=== PATIENT | female | born 1975 | race Hispanic/Latino ===

== ENCOUNTER 2019-09-28 20:27 | Inpatient (IN) | payer BC ==
[2019-09-28] MEDS ORDERED: SODIUM CHLORIDE 0.9% 1000 ML 1,000 ML IV ONE (21:24)
--- NOTE | 2019-09-28 22:45 | Emergency Department Report ---
ED General Adult HPI - General Chief complaint: Medical Clearance Stated complaint: JAUNDICE/SOB X 4 DAYS Time Seen by Provider: 09/28/19 20:36 Source: patient, EMS Mode of arrival: Stretcher Limitations: Physical Limitation - History of Present Illness Initial comments: She presents to the emergency department from [facility] for jaundice. Patient states she is not sure when the jaundice started but noticed that a scale was yellow in nature for the last couple of days. Patient also complains of bleeding while brushing her teeth. Patient denies chest pain, shortness breath, or headache. -: Gradual Severity scale (0 -10): 0 Consistency: constant Improves with: none Worsens with: none Associated Symptoms: denies other symptoms Treatments Prior to Arrival: none - Related Data Home Medications Medication Instructions Recorded Confirmed Last Taken No Known Home Medications [No 09/28/19 09/28/19 Unknown Reported Home Medications] Allergies Allergy/AdvReac Type Severity Reaction Status Date / Time No Known Allergies Allergy Verified 09/28/19 20:33 ED Review of Systems ROS: Stated complaint: JAUNDICE/SOB X 4 DAYS Other details as noted in HPI Comment: All other systems reviewed and negative Constitutional: denies: chills, fever Eyes: denies: eye pain, eye discharge, vision change ENT: denies: ear pain, throat pain Respiratory: denies: cough, shortness of breath, wheezing Cardiovascular: denies: chest pain, palpitations Endocrine: no symptoms reported Gastrointestinal: abdominal pain. denies: nausea, diarrhea Genitourinary: denies: urgency, dysuria, discharge Musculoskeletal: denies: back pain, joint swelling, arthralgia Skin: denies: rash, lesions Neurological: denies: headache, weakness, paresthesias Psychiatric: denies: anxiety, depression Hematological/Lymphatic: denies: easy bleeding, easy bruising ED Past Medical Hx - Past Medical History Previous Medical History?: Yes Hx Hypertension: Yes Hx Liver Disease: Yes Additional medical history: carpal tunnel - Surgical History Past Surgical History?: No - Social History Smoking Status: Former Smoker Substance Use Type: Alcohol - Medications Home Medications: Home Medications Medication Instructions Recorded Confirmed Last Taken Type No Known Home Medications [No 09/28/19 09/28/19 Unknown History Reported Home Medications] ED Physical Exam - General Limitations: Physical Limitation General appearance: alert, in no apparent distress - Head Head exam: Present: atraumatic, normocephalic - Eye Eye exam: Present: normal appearance, scleral icterus - ENT ENT exam: Present: mucous membranes dry - Neck Neck exam: Present: normal inspection - Respiratory Respiratory exam: Present: normal lung sounds bilaterally. Absent: respiratory distress - Cardiovascular Cardiovascular Exam: Present: normal rhythm, tachycardia. Absent: systolic murmur, diastolic murmur, rubs, gallop - GI/Abdominal GI/Abdominal exam: Present: soft, tenderness (diffuse ttp), normal bowel sounds. Absent: distended - Extremities Exam Extremities exam: Present: normal inspection - Back Exam Back exam: Present: normal inspection - Neurological Exam Neurological exam: Present: alert, oriented X3, CN II-XII intact. Absent: motor sensory deficit - Psychiatric Psychiatric exam: Present: normal affect, normal mood - Skin Skin exam: Present: warm, dry, intact, petechiae, other (jaundice). Absent: rash ED Course Vital Signs 09/28/19 09/28/19 09/28/19 20:30 20:33 20:43 Temperature 98.4 F 98.4 F Pulse Rate 127 H 129 H 129 H Respiratory 27 H 24 24 Rate Blood Pressure 145/82 145/82 Blood Pressure 145/82 [Right] O2 Sat by Pulse 95 97 97 Oximetry 09/28/19 09/28/19 09/28/19 21:00 21:30 22:00 Temperature Pulse Rate 119 H 119 H 119 H Respiratory 25 H 21 25 H Rate Blood Pressure 124/76 123/81 124/71 Blood Pressure [Right] O2 Sat by Pulse 96 97 96 Oximetry 09/28/19 09/28/19 22:30 23:01 Temperature Pulse Rate 116 H 113 H Respiratory 14 24 Rate Blood Pressure 130/82 174/115 Blood Pressure [Right] O2 Sat by Pulse 97 97 Oximetry ED Medical Decision Making - Lab Data Result diagrams: 09/28/19 22:28 09/28/19 22:28 Lab Results 09/28/19 09/28/19 09/28/19 Range/Units 22:28 22:28 22:28 WBC 13.1 H (4.5-11.0) K/mm3 RBC 2.57 L (3.65-5.03) M/mm3 Hgb 9.9 L (10.1-14.3) gm/dl Hct 29.2 L (30.3-42.9) % MCV 114 H (79-97) fl MCH 38 H (28-32) pg MCHC 34 (30-34) % RDW 15.9 H (13.2-15.2) % Plt Count 199 (140-440) K/mm3 Lymph % (Auto) Track Moving Machine Operator [place] % (Auto) Track Moving Machine Operator Eos % (Auto) Track Moving Machine Operator Baso % (Auto) Track Moving Machine Operator Lymph # Track Moving Machine Operator [place] # Track Moving Machine Operator Eos # Track Moving Machine Operator Baso # Track Moving Machine Operator Seg Neutrophils % Track Moving Machine Operator Seg Neutrophils # Track Moving Machine Operator PT 25.0 H (12.2-14.9) Sec. INR 2.32 H (0.87-1.13) APTT 39.0 H (24.2-36.6) Sec. Sodium 132 L (137-145) mmol/L Potassium 3.0 L (3.6-5.0) mmol/L Chloride 90.1 L (98-107) mmol/L Carbon Dioxide 23 (22-30) mmol/L Anion Gap 22 mmol/L BUN 11 (7-17) mg/dL Creatinine 0.9 (0.7-1.2) mg/dL Estimated GFR > 60 ml/min BUN/Creatinine Ratio 12 % Glucose 127 H (65-100) mg/dL Calcium 7.9 L (8.4-10.2) mg/dL Total Bilirubin 21.40 H (0.1-1.2) mg/dL AST 297 H (5-40) units/L ALT 71 H (7-56) units/L Alkaline Phosphatase 307 H (35-129) units/L Albumin 3.3 L (3.9-5) g/dL - Radiology Data Radiology results: report reviewed - Medical Decision Making Discussed results with patient Critical care attestation.: If time is entered above; I have spent that time in minutes in the direct care of this critically ill patient, excluding procedure time. ED Disposition Clinical Impression: Jaundice, Elevated INR, Liver failure Disposition: DC-09 OP ADMIT IP TO THIS HOSP Is pt being admited?: Yes Does the pt Need Aspirin: No Condition: Fair Referrals: PRIMARY CARE, [Primary Care Provider] - 3-5 Days Time of Disposition: 23:30
--- NOTE | 2019-09-28 22:46 | Cat Scan Report ---
CT ABDOMEN AND PELVIS WITHOUT CONTRAST INDICATION: Unspecified abdominal pain. COMPARISON: No relevant prior imaging study available. TECHNIQUE: Axial, coronal and sagittal CT imaging of the abdomen and pelvis was performed without co ntrast. Lack of intravenous contrast limits evaluation of the vascular and solid organs. All CT sca ns at this location are performed using CT dose reduction for ALARA by means of automated exposure co ntrol. FINDINGS: LOWER CHEST: No significant abnormality. LIVER: Enlarged with generalized steatosis. A cyst located laterally along the right hepatic lobe stephanie sures 1.4 cm. BILIARY: No significant abnormality. PANCREAS: No significant abnormality. SPLEEN: No significant abnormality. ADRENALS: No significant abnormality. KIDNEYS AND URETERS: No significant abnormality. GI TRACT: No significant abnormality of the stomach, small bowel or colon. The appendix is not seen. PERITONEUM: There is a moderate amount of ascites. No free air. No fluid collection. LYMPH NODES: No significant adenopathy. VASCULATURE: No significant abnormality. URINARY BLADDER: No significant abnormality. REPRODUCTIVE ORGANS: An IUD appears unremarkable. No additional significant abnormality. ADDITIONAL FINDINGS: None. SKELETAL SYSTEM: There are degenerative changes throughout the spine without an acute abnormality. IMPRESSION: 1. Moderate amount of ascites. No additional acute abnormality of the abdomen or pelvis. 2. Additional findings as above. Signer Name: Angelo Bales MD Signed: 09/28/2019 10:42 PM Workstation Name: [id number]
[2019-09-28 22:55] LABS: INR 2.32 (0.87-1.13)
[2019-09-28 23:00] LABS: Hematocrit 29.2 % (30.3-42.9); Hemoglobin 9.9 gm/dl (10.1-14.3); Mean Corpuscular HGB Conc 34 % (30-34); Mean Corpuscular Volume 114 fl (79-97); Platelet Count 199 K/mm3 (140-440); Red Blood Count 2.57 M/mm3 (3.65-5.03); Red Cell Distribution Width 15.9 % (13.2-15.2)
[2019-09-28 23:08] LABS: Alanine Aminotransferase 71 units/L (7-56); Albumin 3.3 g/dL (3.9-5); BUN/Creatinine Ratio 12; Blood Urea Nitrogen 11 mg/dL (7-17); Calcium 7.9 mg/dL (8.4-10.2); Hemolysis Index 0
[2019-09-28 23:31] LABS: Bilirubin,Direct 16.2 mg/dL (0-0.2)
[2019-09-28] MEDS ORDERED: ONDANSETRON 4 MG/2 ML INJ IV PRN (23:56)
[2019-09-28] MEDS ORDERED: ACETAMINOPHEN 325 MG TAB PO PRN (23:56)
--- NOTE | 2019-09-28 23:56 | History and Physical Report ---
History of Present Illness Date of examination: 09/28/19 Date of admission: 09/28/19 Chief complaint: Jaundice History of present illness: Pt is a 44 year old female with no known prior medical history except for alcohol use disorder who was sent to [facility] ER for evaluation of her jaundice. Pt was seen in the ER, she states that she doesn't know how long that she had been jaundice, pt states that she had been drinking a lot of alcohol (unknown brand and amount), she has been unable to walk due to weakness and unsteady gain. Pt went to [facility] for alcohol used, he was sent to the ER due to jaundice. Patient states she is not sure when the jaundice started, she lives alone and works from home and had not had any recent contact for the past few days, she noticed that her skin and eyes were yellow, she decided to go to detox for the first time to stop drinking. Pt also reports easily bleeding, bleeding while brushing her teeth, significant tremor. Patient denies any acute illness, denies recent traveling, denies chest pain, denies shortness breath, or headache, denies dizziness. In the ER pt's total bilirubin was 22.50, PT/INR 25.0/2.32 his liver function was elevated, electrolytes was depleted and urine was positive for UTI, she was seen in the ER and admitted for further evaluation and treatment. Past History Past Medical History: No medical history, other (except alcohol abuse) Past Surgical History: No surgical history Social history: no significant social history Family history: no significant family history Medications and Allergies Allergies Allergy/AdvReac Type Severity Reaction Status Date / Time No Known Allergies Allergy Verified 09/28/19 20:33 Home Medications Medication Instructions Recorded Confirmed Last Taken Type No Known Home Medications [No 09/28/19 09/28/19 Unknown History Reported Home Medications] Review of Systems Neurological: tremors, ataxia Exam - Constitutional Vitals: Temp Pulse Resp BP Pulse Ox 98.4 F 113 H 24 174/115 97 09/28/19 20:43 09/28/19 23:01 09/28/19 23:01 09/28/19 23:01 09/28/19 23:01 General appearance: Present: mild distress - EENT Eyes: Present: EOM intact, scleral icterus ENT: hearing intact - Neck Neck: Present: normal ROM - Respiratory Respiratory effort: normal Respiratory: bilateral: CTA - Cardiovascular Heart Sounds: Present: S1 & S2 - Extremities Extremities: no ischemia, No edema - Abdominal General gastrointestinal: Present: deferred Female genitourinary: Present: deferred - Rectal Rectal Exam: deferred - Integumentary Integumentary: Present: jaundice - Musculoskeletal Musculoskeletal: strength equal bilaterally - Psychiatric Psychiatric: appropriate mood/affect - Neurologic Neurologic: moves all extremities Results - Labs CBC & Chem 7: 09/28/19 22:28 09/28/19 22:28 Labs: Laboratory Last Values WBC 13.1 K/mm3 (4.5-11.0) H 09/28/19 22:28 RBC 2.57 M/mm3 (3.65-5.03) L 09/28/19 22:28 Hgb 9.9 gm/dl (10.1-14.3) L 09/28/19 22:28 Hct 29.2 % (30.3-42.9) L 09/28/19 22:28 MCV 114 fl (79-97) H 09/28/19 22:28 MCH 38 pg (28-32) H 09/28/19 22:28 MCHC 34 % (30-34) 09/28/19 22:28 RDW 15.9 % (13.2-15.2) H 09/28/19 22:28 Plt Count 199 K/mm3 (140-440) 09/28/19 22:28 Lymph % (Auto) Passenger Train Braker 09/28/19 22:28 [place] % (Auto) Passenger Train Braker 09/28/19 22:28 Eos % (Auto) Passenger Train Braker 09/28/19 22:28 Baso % (Auto) Passenger Train Braker 09/28/19 22:28 Lymph # Passenger Train Braker 09/28/19 22:28 [place] # Passenger Train Braker 09/28/19 22:28 Eos # Passenger Train Braker 09/28/19 22:28 Baso # Passenger Train Braker 09/28/19 22:28 Seg Neutrophils % Passenger Train Braker 09/28/19 22:28 Seg Neutrophils # Passenger Train Braker 09/28/19 22:28 PT 25.0 Sec. (12.2-14.9) H 09/28/19 22:28 INR 2.32 (0.87-1.13) H 09/28/19 22:28 APTT 39.0 Sec. (24.2-36.6) H 09/28/19 22:28 Sodium 132 mmol/L (137-145) L 09/28/19 22:28 Potassium 3.0 mmol/L (3.6-5.0) L 09/28/19 22:28 Chloride 90.1 mmol/L (98-107) L 09/28/19 22:28 Carbon Dioxide 23 mmol/L (22-30) 09/28/19 22:28 Anion Gap 22 mmol/L 09/28/19 22:28 BUN 11 mg/dL (7-17) 09/28/19 22:28 Creatinine 0.9 mg/dL (0.7-1.2) 09/28/19 22:28 Estimated GFR > 60 ml/min 09/28/19 22:28 BUN/Creatinine Ratio 12 % 09/28/19 22:28 Glucose 127 mg/dL (65-100) H 09/28/19 22:28 Calcium 7.9 mg/dL (8.4-10.2) L 09/28/19 22:28 Total Bilirubin 21.40 mg/dL (0.1-1.2) H 09/28/19 22:28 Direct Bilirubin 16.2 mg/dL (0-0.2) H 09/28/19 22:28 Indirect Bilirubin 5.2 mg/dL 09/28/19 22:28 AST 297 units/L (5-40) H 09/28/19 22:28 ALT 71 units/L (7-56) H 09/28/19 22:28 Alkaline Phosphatase 307 units/L (35-129) H 09/28/19 22:28 Total Protein 6.0 g/dL (6.3-8.2) L 09/28/19 22:28 Albumin 3.3 g/dL (3.9-5) L 09/28/19 22:28 Albumin/Globulin Ratio 1.2 % 09/28/19 22:28 Assessment and Plan Assessment and plan: 1. Acute liver failure 2. Jaundice (due to above) 3. Hyperbilirubenemia 4. Alcohol used disorder 5. Leucocytosis 6. Anemia 7. Dehydration 8. Hyponatremia 9. Hypokalemia 10. Hypertension 11. Hyperlipidemia 12. UTI Plan: Pt is admitted for acute jaundice Continue IVF hydration Replace potassium IV antibiotic for UTI Consult GI in the am Monitor for admit to medtele NS for hydration Banana bag or Multi vit, thiamina, CIWA protocol with ativan Safety precaution Advance Directives: Yes Contraindication Mechanical VTE Prophylaxis: Contraindicated Plan of care discussed with patient/family: Yes
[2019-09-29] MEDS ORDERED: METOCLOPRAMIDE 10 MG/2 ML INJ IV PRN (00:31)
[2019-09-29] MEDS ORDERED: ALBUTEROL 2.5 MG/3 ML NEBU IH PRN (00:31)
[2019-09-29] MEDS ORDERED: ONDANSETRON 4 MG/2 ML INJ IV PRN (00:31)
[2019-09-29] MEDS ORDERED: SODIUM CHLORIDE 0.9% 1000 ML 1,000 ML ONE (01:16)
[2019-09-29] MEDS: SODIUM CHLORIDE 0.9% 1000 ML 1,000 ML IV SCH ×2 (01:21→15:09)
[2019-09-29 01:24] LABS: Albumin 3.4 g/dL (3.9-5)
[2019-09-29 01:28] LABS: Bacteria,Urine 1+ /HPF (Negative); Bilirubin,Urine MOD (Negative); Blood,Urine SM (Negative); Color,Urine Amber (Yellow); Mucus,Urine 3+ /HPF
[2019-09-29 01:39] LABS: Ictotest,Urine Positive (Negative)
[2019-09-29 02:04] LABS: Bilirubin,Direct 16.6 mg/dL (0-0.2)
[2019-09-29 03:49] LABS: HDL Cholesterol 5 mg/dL (40-59); LDL Cholesterol,Direct TNR mg/dL (50-130)
[2019-09-29 05:37] LABS: Band Neutrophils # (Manual) 0.1 K/mm3; Basophils % (Manual) 0 % (0.0-1.8); Total Cells Counted 100
[2019-09-29 05:38] LABS: Target Cells 1+
[2019-09-29 05:39] LABS: Platelet Estimate Consistent w Auto
[2019-09-29] MEDS ORDERED: LORazepam 2 MG/ML VIAL IV PRN ×3 (07:09)
[2019-09-29] MEDS ORDERED: HALOPERIDOL LACTATE 5 MG/1 ML INJ IV PRN (07:09)
[2019-09-29] MEDS ORDERED: POTASSIUM CHLORIDE ER 20 MEQ TAB PO NR (07:16)
[2019-09-29] MEDS ORDERED: THIAMINE 100 MG, FOLIC ACID 1 MG, MULTIPLE VITAMIN/VIT K 10 ML in SODIUM CHLORIDE 0.9% ... IV ONE (08:00)
[2019-09-29 08:12] LABS: Albumin 3.3 g/dL (3.9-5)
[2019-09-29 08:46] LABS: Bilirubin,Direct 16.4 mg/dL (0-0.2)
[2019-09-29] MEDS: FAMOTIDINE 20 MG/2 ML INJ IV SCH ×2 (10:34→21:15)
--- NOTE | 2019-09-29 11:32 | Gastroenterology Consultation ---
<EDD ANNE - Last Filed: 09/29/19 13:53> History of Present Illness - Reason for Consult Consult date: 09/29/19 ETOH, liver failure Requesting physician: CARROL BRIONES - History of Present Illness Patient is a 44 y/o with no PMH except ETOH abuse who presented from [facility] (but states she lives in [facility]) for evaluation of acute onset of jaundice over the past few days. Upon admission, LFTs were found to be elevated, along with INR to which GI has been consulted for acute liver failure. This morning patient was resting in bed w/o acute distress. Reports heavy daily alcohol use for several years but no known hx of liver disease. No IV drug use or new medications. Admits to generalized weakness and mild diffuse abd discomfort but denies fever, CP, SOB, N/v, signs of bleeding, or LGI symptoms. Past History Past Medical History: other (ETOH abuse, carpal tunnel) Past Surgical History: No surgical history Social history: smoking (former smoker), alcohol abuse Family history: no significant family history Medications and Allergies Allergies Allergy/AdvReac Type Severity Reaction Status Date / Time No Known Allergies Allergy Verified 09/28/19 20:33 Home Medications Medication Instructions Recorded Confirmed Last Taken Type No Known Home Medications [No 09/28/19 09/28/19 Unknown History Reported Home Medications] Active Meds: Active Medications Acetaminophen (Tylenol) 650 mg PO Q4H PRN PRN Reason: Pain MILD(1-3)/Fever >100.5/JUAREZ Albuterol (Proventil) 2.5 mg IH Q4HRT PRN PRN Reason: Shortness Of Breath Famotidine (Pepcid) 20 mg IV BID [facility] Last Admin: 09/29/19 10:34 Dose: 20 mg Documented by: Haloperidol Lactate (Haldol) 5 mg IV Q1HR PRN PRN Reason: Unrespon. to mult. doses BZD's Sodium Chloride (Nacl 0.9% 1000 Ml) 1,000 mls @ 100 mls/hr IV DIRECT [facility] Last Admin: 09/29/19 01:21 Dose: 100 mls/hr Documented by: Thiamine HCl 100 mg/ Folic Acid 1 mg/ Multivitamins/Minerals 10 ml/ Sodium Chloride 1,011.2 mls @ 250 mls/hr IV ONCE ONE Stop: 09/29/19 12:02 Last Admin: 09/29/19 10:34 Dose: 250 mls/hr Documented by: Lorazepam (Ativan) 2 mg IV Q1HR PRN PRN Reason: CIWA-Ar 8-15 Lorazepam (Ativan) 4 mg IV Q1HR PRN PRN Reason: CIWA-Ar 16-25 Lorazepam (Ativan) 4 mg IV Q15MIN PRN PRN Reason: CIWA-Ar >25 Metoclopramide HCl (Reglan) 10 mg IV Q6H PRN PRN Reason: Nausea And Vomiting Ondansetron HCl (Zofran) 4 mg IV Q8H PRN PRN Reason: Nausea And Vomiting Potassium Chloride (K-Dur) 40 meq PO ONCE NR Stop: 09/29/19 12:00 Sodium Chloride (Sodium Chloride Flush Syringe 10 Ml) 10 ml IV BID [facility] Last Admin: 09/29/19 10:35 Dose: 10 ml Documented by: Sodium Chloride (Sodium Chloride Flush Syringe 10 Ml) 10 ml IV PRN PRN PRN Reason: LINE FLUSH Thiamine HCl (Vitamin B-1) 100 mg PO QDAY [facility] medications reviewed/updated as required Review of Systems - Review of Systems All systems: negative Constitutional: weakness Gastrointestinal: abdominal pain, jaundice Exam - Constitutional Vital Signs: Temp Pulse Resp BP Pulse Ox 98.4 F 107 H 18 132/85 96 09/29/19 07:25 09/29/19 07:25 09/29/19 07:25 09/29/19 07:25 09/29/19 07:25 General appearance: no acute distress - EENT Eyes: PERRL, EOM intact, scleral icterus ENT: hearing intact - Respiratory Respiratory effort: normal Respiratory: bilateral: CTA - Cardiovascular Rhythm: other (tachycardia) - Gastrointestinal General gastrointestinal: Present: soft, tender (slight TTP), non-distended, normal bowel sounds - Integumentary Integumentary: Present: jaundice - Neurologic Neurological: alert and oriented x3 - Labs CBC & Chem 7: 09/28/19 22:28 09/28/19 22:28 Lab Results: Laboratory Results - last 24 hr 09/28/19 09/28/19 09/28/19 22:28 22:28 22:28 WBC 13.1 H RBC 2.57 L Hgb 9.9 L Hct 29.2 L MCV 114 H MCH 38 H MCHC 34 RDW 15.9 H Plt Count 199 Lymph % (Auto) Ore Mixer [place] % (Auto) Ore Mixer Eos % (Auto) Ore Mixer Baso % (Auto) Ore Mixer Lymph # Ore Mixer [place] # Ore Mixer Eos # Ore Mixer Baso # Ore Mixer Add Manual Diff Complete Total Counted 100 Seg Neutrophils % Ore Mixer Seg Neuts % (Manual) 79.0 H Band Neutrophils % 1.0 Lymphocytes % (Manual) 13.0 L Reactive Lymphs % (Man) 0 Monocytes % (Manual) 6.0 Eosinophils % (Manual) 1.0 Basophils % (Manual) 0 Metamyelocytes % 0 Myelocytes % 0 Promyelocytes % 0 Blast Cells % 0 Nucleated RBC % Not Reportable Seg Neutrophils # Ore Mixer Seg Neutrophils # Man 10.3 H Band Neutrophils # 0.1 Lymphocytes # (Manual) 1.7 Abs React Lymphs (Man) 0.0 Monocytes # (Manual) 0.8 Eosinophils # (Manual) 0.1 Basophils # (Manual) 0.0 Metamyelocytes # 0.0 Myelocytes # 0.0 Promyelocytes # 0.0 Blast Cells # 0.0 WBC Morphology Not Reportable Hypersegmented Neuts Not Reportable Hyposegmented Neuts Not Reportable Hypogranular Neuts Not Reportable Smudge Cells Not Reportable Toxic Granulation Not Reportable Toxic Vacuolation Not Reportable Dohle Bodies Not Reportable Pelger-Huet Anomaly Not Reportable Rafi Rods Not Reportable Platelet Estimate Consistent w auto Clumped Platelets Not Reportable Plt Clumps, EDTA Not Reportable Large Platelets Not Reportable Giant Platelets Not Reportable Platelet Satelliting Not Reportable Plt Morphology Comment Not Reportable RBC Morphology Not Reportable Dimorphic RBCs Not Reportable Polychromasia Not Reportable Hypochromasia Not Reportable Poikilocytosis Not Reportable Anisocytosis Not Reportable Microcytosis Not Reportable Macrocytosis Not Reportable Spherocytes Not Reportable Pappenheimer Bodies Not Reportable Sickle Cells Not Reportable Target Cells 1+ Tear Drop Cells Not Reportable Ovalocytes Not Reportable Helmet Cells Not Reportable Harris-Prichard Bodies Not Reportable [place] Rings Not Reportable Mily Cells Not Reportable Bite Cells Not Reportable Crenated Cell Not Reportable Elliptocytes Not Reportable Acanthocytes (Spur) Not Reportable Rouleaux Not Reportable Hemoglobin C Crystals Not Reportable Schistocytes Not Reportable Malaria parasites Not Reportable Ming Bodies Not Reportable Hem Pathologist Commnt No PT 25.0 H INR 2.32 H APTT 39.0 H Sodium 132 L Potassium 3.0 L Chloride 90.1 L Carbon Dioxide 23 Anion Gap 22 BUN 11 Creatinine 0.9 Estimated GFR > 60 BUN/Creatinine Ratio 12 Glucose 127 H Calcium 7.9 L Magnesium Total Bilirubin 21.40 H Direct Bilirubin 16.2 H Indirect Bilirubin 5.2 AST 297 H ALT 71 H Alkaline Phosphatase 307 H Ammonia Total Protein 6.0 L Albumin 3.3 L Albumin/Globulin Ratio 1.2 Triglycerides Cholesterol LDL Cholesterol Direct HDL Cholesterol Cholesterol/HDL Ratio Urine Color Urine Turbidity Urine pH Ur Specific [place] Urine Protein Urine Glucose (UA) Urine Ketones Urine Blood Urine Nitrite Urine Bilirubin Urine Ictotest Urine Urobilinogen Ur Leukocyte Esterase Urine WBC (Auto) Urine RBC (Auto) U Epithel Cells (Auto) Urine Bacteria (Auto) Urine Mucus 09/29/19 09/29/19 09/29/19 00:48 00:48 00:52 WBC RBC Hgb Hct MCV MCH MCHC RDW Plt Count Lymph % (Auto) [place] % (Auto) Eos % (Auto) Baso % (Auto) Lymph # [place] # Eos # Baso # Add Manual Diff Total Counted Seg Neutrophils % Seg Neuts % (Manual) Band Neutrophils % Lymphocytes % (Manual) Reactive Lymphs % (Man) Monocytes % (Manual) Eosinophils % (Manual) Basophils % (Manual) Metamyelocytes % Myelocytes % Promyelocytes % Blast Cells % Nucleated RBC % Seg Neutrophils # Seg Neutrophils # Man Band Neutrophils # Lymphocytes # (Manual) Abs React Lymphs (Man) Monocytes # (Manual) Eosinophils # (Manual) Basophils # (Manual) Metamyelocytes # Myelocytes # Promyelocytes # Blast Cells # WBC Morphology Hypersegmented Neuts Hyposegmented Neuts Hypogranular Neuts Smudge Cells Toxic Granulation Toxic Vacuolation Dohle Bodies Pelger-Huet Anomaly Rafi Rods Platelet Estimate Clumped Platelets Plt Clumps, EDTA Large Platelets Giant Platelets Platelet Satelliting Plt Morphology Comment RBC Morphology Dimorphic RBCs Polychromasia Hypochromasia Poikilocytosis Anisocytosis Microcytosis Macrocytosis Spherocytes Pappenheimer Bodies Sickle Cells Target Cells Tear Drop Cells Ovalocytes Helmet Cells Harris-Prichard Bodies [place] Rings Mily Cells Bite Cells Crenated Cell Elliptocytes Acanthocytes (Spur) Rouleaux Hemoglobin C Crystals Schistocytes Malaria parasites Ming Bodies Hem Pathologist Commnt PT INR APTT Sodium Potassium Chloride Carbon Dioxide Anion Gap BUN Creatinine Estimated GFR BUN/Creatinine Ratio Glucose Calcium Magnesium Total Bilirubin 22.50 H Direct Bilirubin 16.6 H Indirect Bilirubin 5.9 AST 301 H ALT 71 H Alkaline Phosphatase 309 H Ammonia Total Protein 6.1 L Albumin 3.4 L Albumin/Globulin Ratio 1.3 Triglycerides 411 H Cholesterol 310 H LDL Cholesterol Direct TNR HDL Cholesterol 5 L Cholesterol/HDL Ratio 62.00 Urine Color Jennifer Urine Turbidity Cloudy Urine pH 5.0 Ur Specific [place] 1.025 Urine Protein 100 mg/dl Urine Glucose (UA) 150 Urine Ketones Neg Urine Blood Sm Urine Nitrite Neg Urine Bilirubin Mod Urine Ictotest Positive Urine Urobilinogen 4.0 Ur Leukocyte Esterase Neg Urine WBC (Auto) 33.0 H Urine RBC (Auto) 8.0 U Epithel Cells (Auto) 12.0 Urine Bacteria (Auto) 1+ Urine Mucus 3+ 09/29/19 09/29/19 07:30 07:30 WBC RBC Hgb Hct MCV MCH MCHC RDW Plt Count Lymph % (Auto) [place] % (Auto) Eos % (Auto) Baso % (Auto) Lymph # [place] # Eos # Baso # Add Manual Diff Total Counted Seg Neutrophils % Seg Neuts % (Manual) Band Neutrophils % Lymphocytes % (Manual) Reactive Lymphs % (Man) Monocytes % (Manual) Eosinophils % (Manual) Basophils % (Manual) Metamyelocytes % Myelocytes % Promyelocytes % Blast Cells % Nucleated RBC % Seg Neutrophils # Seg Neutrophils # Man Band Neutrophils # Lymphocytes # (Manual) Abs React Lymphs (Man) Monocytes # (Manual) Eosinophils # (Manual) Basophils # (Manual) Metamyelocytes # Myelocytes # Promyelocytes # Blast Cells # WBC Morphology Hypersegmented Neuts Hyposegmented Neuts Hypogranular Neuts Smudge Cells Toxic Granulation Toxic Vacuolation Dohle Bodies Pelger-Huet Anomaly Rafi Rods Platelet Estimate Clumped Platelets Plt Clumps, EDTA Large Platelets Giant Platelets Platelet Satelliting Plt Morphology Comment RBC Morphology Dimorphic RBCs Polychromasia Hypochromasia Poikilocytosis Anisocytosis Microcytosis Macrocytosis Spherocytes Pappenheimer Bodies Sickle Cells Target Cells Tear Drop Cells Ovalocytes Helmet Cells Harris-Prichard Bodies [place] Rings Mily Cells Bite Cells Crenated Cell Elliptocytes Acanthocytes (Spur) Rouleaux Hemoglobin C Crystals Schistocytes Malaria parasites Ming Bodies Hem Pathologist Commnt PT INR APTT Sodium Potassium Chloride Carbon Dioxide Anion Gap BUN Creatinine Estimated GFR BUN/Creatinine Ratio Glucose Calcium Magnesium 1.70 Total Bilirubin 22.10 H Direct Bilirubin 16.4 H Indirect Bilirubin 5.7 AST 305 H ALT 69 H Alkaline Phosphatase 299 H Ammonia 114.0 H Total Protein 6.0 L Albumin 3.3 L Albumin/Globulin Ratio 1.2 Triglycerides Cholesterol LDL Cholesterol Direct HDL Cholesterol Cholesterol/HDL Ratio Urine Color Urine Turbidity Urine pH Ur Specific [place] Urine Protein Urine Glucose (UA) Urine Ketones Urine Blood Urine Nitrite Urine Bilirubin Urine Ictotest Urine Urobilinogen Ur Leukocyte Esterase Urine WBC (Auto) Urine RBC (Auto) U Epithel Cells (Auto) Urine Bacteria (Auto) Urine Mucus Assessment and Plan 1.elevated LFTs 2.jaundice 3.ETOH abuse -afebrile -WBC 13.1 -H/H 9.9/29.2 (macrocytic anemia)-no signs of active bleeding -plt WNL, INR 2.32 -LFTs- T.cheryl 22.10, AST 305, ALT 69, alk phos 299 -ammonia 114 -abd CT showed hepatic steatosis and moderate ascites -etiology-most likely 2/2 alcoholic hepatitis -will give vit K challenge, start on empiric antibiotics/lactulose -DF >32- recommend diagnostic paracentesis to r/o SBP prior to starting on steroids -avoid hepatotoxic agents, limit sedatives -continue PPI, MVI, and supportive care -continue to trend labs -electrolyte management per primary team -alcohol cessation discussed/encouraged with patient- WA protocol -will follow <LUPE PERRY R - Last Filed: 09/29/19 16:43> Medications and Allergies Active Meds: Active Medications Acetaminophen (Tylenol) 650 mg PO Q4H PRN PRN Reason: Pain MILD(1-3)/Fever >100.5/JUAREZ Albuterol (Proventil) 2.5 mg IH Q4HRT PRN PRN Reason: Shortness Of Breath Famotidine (Pepcid) 20 mg IV BID [facility] Last Admin: 09/29/19 10:34 Dose: 20 mg Documented by: Haloperidol Lactate (Haldol) 5 mg IV Q1HR PRN PRN Reason: Unrespon. to mult. doses BZD's Sodium Chloride (Nacl 0.9% 1000 Ml) 1,000 mls @ 100 mls/hr IV DIRECT [facility] Last Admin: 09/29/19 15:09 Dose: 100 mls/hr Documented by: Ceftriaxone Sodium (Rocephin/Ns 1 Gm/50 Ml) 1 gm in 50 mls @ 100 mls/hr IV Q24HR [facility]; Protocol Lactulose (Cephulac) 20 gm PO QDAY [facility] Last Admin: 09/29/19 15:08 Dose: 20 gm Documented by: Lorazepam (Ativan) 2 mg IV Q1HR PRN PRN Reason: CIWA-Ar 8-15 Lorazepam (Ativan) 4 mg IV Q1HR PRN PRN Reason: CIWA-Ar 16-25 Lorazepam (Ativan) 4 mg IV Q15MIN PRN PRN Reason: CIWA-Ar >25 Metoclopramide HCl (Reglan) 10 mg IV Q6H PRN PRN Reason: Nausea And Vomiting Ondansetron HCl (Zofran) 4 mg IV Q8H PRN PRN Reason: Nausea And Vomiting Sodium Chloride (Sodium Chloride Flush Syringe 10 Ml) 10 ml IV BID [facility] Last Admin: 09/29/19 10:35 Dose: 10 ml Documented by: Sodium Chloride (Sodium Chloride Flush Syringe 10 Ml) 10 ml IV PRN PRN PRN Reason: LINE FLUSH Thiamine HCl (Vitamin B-1) 100 mg PO QDAY [facility] Exam - Constitutional Vital Signs: Temp Pulse Resp BP Pulse Ox 98.4 F 107 H 18 132/85 96 09/29/19 07:25 09/29/19 07:25 09/29/19 07:25 09/29/19 07:25 09/29/19 07:25 - Labs CBC & Chem 7: 09/28/19 22:28 09/28/19 22:28 Lab Results: Laboratory Results - last 24 hr 09/28/19 09/28/19 09/28/19 22:28 22:28 22:28 WBC 13.1 H RBC 2.57 L Hgb 9.9 L Hct 29.2 L MCV 114 H MCH 38 H MCHC 34 RDW 15.9 H Plt Count 199 Lymph % (Auto) Ore Mixer [place] % (Auto) Ore Mixer Eos % (Auto) Ore Mixer Baso % (Auto) Ore Mixer Lymph # Ore Mixer [place] # Ore Mixer Eos # Ore Mixer Baso # Ore Mixer Add Manual Diff Complete Total Counted 100 Seg Neutrophils % Ore Mixer Seg Neuts % (Manual) 79.0 H Band Neutrophils % 1.0 Lymphocytes % (Manual) 13.0 L Reactive Lymphs % (Man) 0 Monocytes % (Manual) 6.0 Eosinophils % (Manual) 1.0 Basophils % (Manual) 0 Metamyelocytes % 0 Myelocytes % 0 Promyelocytes % 0 Blast Cells % 0 Nucleated RBC % Not Reportable Seg Neutrophils # Ore Mixer Seg Neutrophils # Man 10.3 H Band Neutrophils # 0.1 Lymphocytes # (Manual) 1.7 Abs React Lymphs (Man) 0.0 Monocytes # (Manual) 0.8 Eosinophils # (Manual) 0.1 Basophils # (Manual) 0.0 Metamyelocytes # 0.0 Myelocytes # 0.0 Promyelocytes # 0.0 Blast Cells # 0.0 WBC Morphology Not Reportable Hypersegmented Neuts Not Reportable Hyposegmented Neuts Not Reportable Hypogranular Neuts Not Reportable Smudge Cells Not Reportable Toxic Granulation Not Reportable Toxic Vacuolation Not Reportable Dohle Bodies Not Reportable Pelger-Huet Anomaly Not Reportable Rafi Rods Not Reportable Platelet Estimate Consistent w auto Clumped Platelets Not Reportable Plt Clumps, EDTA Not Reportable Large Platelets Not Reportable Giant Platelets Not Reportable Platelet Satelliting Not Reportable Plt Morphology Comment Not Reportable RBC Morphology Not Reportable Dimorphic RBCs Not Reportable Polychromasia Not Reportable Hypochromasia Not Reportable Poikilocytosis Not Reportable Anisocytosis Not Reportable Microcytosis Not Reportable Macrocytosis Not Reportable Spherocytes Not Reportable Pappenheimer Bodies Not Reportable Sickle Cells Not Reportable Target Cells 1+ Tear Drop Cells Not Reportable Ovalocytes Not Reportable Helmet Cells Not Reportable Harris-Prichard Bodies Not Reportable [place] Rings Not Reportable [employer] Cells Not Reportable Bite Cells Not Reportable Crenated Cell Not Reportable Elliptocytes Not Reportable Acanthocytes (Spur) Not Reportable Rouleaux Not Reportable Hemoglobin C Crystals Not Reportable Schistocytes Not Reportable Malaria parasites Not Reportable Ming Bodies Not Reportable Hem Pathologist Commnt No PT 25.0 H INR 2.32 H APTT 39.0 H Sodium 132 L Potassium 3.0 L Chloride 90.1 L Carbon Dioxide 23 Anion Gap 22 BUN 11 Creatinine 0.9 Estimated GFR > 60 BUN/Creatinine Ratio 12 Glucose 127 H Calcium 7.9 L Magnesium Total Bilirubin 21.40 H Direct Bilirubin 16.2 H Indirect Bilirubin 5.2 AST 297 H ALT 71 H Alkaline Phosphatase 307 H Ammonia Total Protein 6.0 L Albumin 3.3 L Albumin/Globulin Ratio 1.2 Triglycerides Cholesterol LDL Cholesterol Direct HDL Cholesterol Cholesterol/HDL Ratio Urine Color Urine Turbidity Urine pH Ur Specific [place] Urine Protein Urine Glucose (UA) Urine Ketones Urine Blood Urine Nitrite Urine Bilirubin Urine Ictotest Urine Urobilinogen Ur Leukocyte Esterase Urine WBC (Auto) Urine RBC (Auto) U Epithel Cells (Auto) Urine Bacteria (Auto) Urine Mucus Hepatitis A IgM Ab Hep Bs Antigen Hep B Core IgM Ab Hepatitis C Antibody 09/29/19 09/29/19 09/29/19 00:48 00:48 00:52 WBC RBC Hgb Hct MCV MCH MCHC RDW Plt Count Lymph % (Auto) [place] % (Auto) Eos % (Auto) Baso % (Auto) Lymph # [place] # Eos # Baso # Add Manual Diff Total Counted Seg Neutrophils % Seg Neuts % (Manual) Band Neutrophils % Lymphocytes % (Manual) Reactive Lymphs % (Man) Monocytes % (Manual) Eosinophils % (Manual) Basophils % (Manual) Metamyelocytes % Myelocytes % Promyelocytes % Blast Cells % Nucleated RBC % Seg Neutrophils # Seg Neutrophils # Man Band Neutrophils # Lymphocytes # (Manual) Abs React Lymphs (Man) Monocytes # (Manual) Eosinophils # (Manual) Basophils # (Manual) Metamyelocytes # Myelocytes # Promyelocytes # Blast Cells # WBC Morphology Hypersegmented Neuts Hyposegmented Neuts Hypogranular Neuts Smudge Cells Toxic Granulation Toxic Vacuolation Dohle Bodies Pelger-Huet Anomaly Rafi Rods Platelet Estimate Clumped Platelets Plt Clumps, EDTA Large Platelets Giant Platelets Platelet Satelliting Plt Morphology Comment RBC Morphology Dimorphic RBCs Polychromasia Hypochromasia Poikilocytosis Anisocytosis Microcytosis Macrocytosis Spherocytes Pappenheimer Bodies Sickle Cells Target Cells Tear Drop Cells Ovalocytes Helmet Cells Harris-Prichard Bodies [place] Rings [employer] Cells Bite Cells Crenated Cell Elliptocytes Acanthocytes (Spur) Rouleaux Hemoglobin C Crystals Schistocytes Malaria parasites Ming Bodies Hem Pathologist Commnt PT INR APTT Sodium Potassium Chloride Carbon Dioxide Anion Gap BUN Creatinine Estimated GFR BUN/Creatinine Ratio Glucose Calcium Magnesium Total Bilirubin 22.50 H Direct Bilirubin 16.6 H Indirect Bilirubin 5.9 AST 301 H ALT 71 H Alkaline Phosphatase 309 H Ammonia Total Protein 6.1 L Albumin 3.4 L Albumin/Globulin Ratio 1.3 Triglycerides 411 H Cholesterol 310 H LDL Cholesterol Direct TNR HDL Cholesterol 5 L Cholesterol/HDL Ratio 62.00 Urine Color Jennifer Urine Turbidity Cloudy Urine pH 5.0 Ur Specific [place] 1.025 Urine Protein 100 mg/dl Urine Glucose (UA) 150 Urine Ketones Neg Urine Blood Sm Urine Nitrite Neg Urine Bilirubin Mod Urine Ictotest Positive Urine Urobilinogen 4.0 Ur Leukocyte Esterase Neg Urine WBC (Auto) 33.0 H Urine RBC (Auto) 8.0 U Epithel Cells (Auto) 12.0 Urine Bacteria (Auto) 1+ Urine Mucus 3+ Hepatitis A IgM Ab Hep Bs Antigen Hep B Core IgM Ab Hepatitis C Antibody 09/29/19 09/29/19 09/29/19 07:30 07:30 09:53 WBC RBC Hgb Hct MCV MCH MCHC RDW Plt Count Lymph % (Auto) [place] % (Auto) Eos % (Auto) Baso % (Auto) Lymph # [place] # Eos # Baso # Add Manual Diff Total Counted Seg Neutrophils % Seg Neuts % (Manual) Band Neutrophils % Lymphocytes % (Manual) Reactive Lymphs % (Man) Monocytes % (Manual) Eosinophils % (Manual) Basophils % (Manual) Metamyelocytes % Myelocytes % Promyelocytes % Blast Cells % Nucleated RBC % Seg Neutrophils # Seg Neutrophils # Man Band Neutrophils # Lymphocytes # (Manual) Abs React Lymphs (Man) Monocytes # (Manual) Eosinophils # (Manual) Basophils # (Manual) Metamyelocytes # Myelocytes # Promyelocytes # Blast Cells # WBC Morphology Hypersegmented Neuts Hyposegmented Neuts Hypogranular Neuts Smudge Cells Toxic Granulation Toxic Vacuolation Dohle Bodies Pelger-Huet Anomaly Rafi Rods Platelet Estimate Clumped Platelets Plt Clumps, EDTA Large Platelets Giant Platelets Platelet Satelliting Plt Morphology Comment RBC Morphology Dimorphic RBCs Polychromasia Hypochromasia Poikilocytosis Anisocytosis Microcytosis Macrocytosis Spherocytes Pappenheimer Bodies Sickle Cells Target Cells Tear Drop Cells Ovalocytes Helmet Cells Harris-Prichard Bodies [place] Rings [employer] Cells Bite Cells Crenated Cell Elliptocytes Acanthocytes (Spur) Rouleaux Hemoglobin C Crystals Schistocytes Malaria parasites Ming Bodies Hem Pathologist Commnt PT INR APTT Sodium Potassium Chloride Carbon Dioxide Anion Gap BUN Creatinine Estimated GFR BUN/Creatinine Ratio Glucose Calcium Magnesium 1.70 Total Bilirubin 22.10 H Direct Bilirubin 16.4 H Indirect Bilirubin 5.7 AST 305 H ALT 69 H Alkaline Phosphatase 299 H Ammonia 114.0 H Total Protein 6.0 L Albumin 3.3 L Albumin/Globulin Ratio 1.2 Triglycerides Cholesterol LDL Cholesterol Direct HDL Cholesterol Cholesterol/HDL Ratio Urine Color Urine Turbidity Urine pH Ur Specific [place] Urine Protein Urine Glucose (UA) Urine Ketones Urine Blood Urine Nitrite Urine Bilirubin Urine Ictotest Urine Urobilinogen Ur Leukocyte Esterase Urine WBC (Auto) Urine RBC (Auto) U Epithel Cells (Auto) Urine Bacteria (Auto) Urine Mucus Hepatitis A IgM Ab Non-reactive Hep Bs Antigen Non-reactive Hep B Core IgM Ab Non-reactive Hepatitis C Antibody Non-reactive 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 Denies prior known hx of liver disease. 4 yr hx of 750ml vodka q 2-3 days. Alert, jaundiced. If unable to get coags corrected and get paracentesis, then initiate abx and steroids empirically.
[2019-09-29] MEDS ORDERED: FLU VACC QUAD 2019-20 (3 YR UP)/PF 60 MCG/0.5 ML SYRINGE IM ONE (12:00)
[2019-09-29 13:57] LABS: Hepatitis B Surface Antigen Non-Reactive (Negative); Hepatitis C Virus Antibody Non-Reactive (NonReactive)
[2019-09-29] MEDS ORDERED: PHYTONADIONE(ADULT ONLY) 10 MG in SODIUM CHLORIDE 0.9% 50 ML IV ONE (14:06)
[2019-09-29] MEDS: LACTULOSE 20 GM/30 ML ORAL LIQD PO SCH (15:08)
--- NOTE | 2019-09-29 16:34 | Progress Note ---
Assessment and Plan /Acute alcoholic liver failure - Continue to monitor LFT, follow GI recommendation - Continue lactulose, steroid /Hyperbilirubenemia, due to acute liver failure, supportive care /Alcohol used disorder NS for hydration Banana bag or Multi vit, thiamina, CIWA protocol with ativan /Leucocytosis with SIRS from [place] - We'll monitor clinically, supportive care Anemia of chronic disease, monitor H&H, transfuse as needed / Hyponatremia and Hypokalemia - Continue IV fluid hydration, replete electrolytes, monitor BMP / Hypertension - monitor BP / Hyperlipidemia - we will hold his statin in the light of acute hepatic failure / UTI - ruled out with a negative UA and negative urine culture DVT prophylaxis, SCD Subjective Date of service: 09/29/19 Interval history: Patient seen and examined. Medical records and medication list reviewed. No acute event overnight noted by the RN. Patient denies any chest pain or difficulty breathing. Admits to drinking alcohol daily basis mainly vodka, last intake was on 09/25 Discussed plan of care at bedside with patient. Objective - Constitutional Vitals: Vital Signs - 12hr 09/29/19 07:25 Temperature 98.4 F Pulse Rate 107 H Respiratory 18 Rate Blood Pressure 132/85 O2 Sat by Pulse 96 Oximetry General appearance: Present: mild distress - EENT Eyes: PERRL, EOM intact, scleral icterus ENT: hearing intact, clear oral mucosa Ears: bilateral: normal - Neck Neck: supple, normal ROM - Respiratory Respiratory effort: normal Respiratory: bilateral: CTA - Cardiovascular Rhythm: regular Heart Sounds: Present: S1 & S2. Absent: gallop, rub Extremities: pulses intact, No edema, normal color, Full ROM - Gastrointestinal General gastrointestinal: Present: soft, non-tender, non-distended, normal bowel sounds - Integumentary Integumentary: clear, warm, dry, jaundice - Musculoskeletal Musculoskeletal: generalized weakness - Neurologic Neurologic: moves all extremities - Psychiatric Psychiatric: memory intact, appropriate mood/affect, intact judgment & insight - Labs CBC & Chem 7: 10/01/19 05:09 10/01/19 09:13 Labs: Abnormal lab results 09/28/19 09/28/19 09/28/19 Range/Units 22:28 22:28 22:28 WBC 13.1 H (4.5-11.0) K/mm3 RBC 2.57 L (3.65-5.03) M/mm3 Hgb 9.9 L (10.1-14.3) gm/dl Hct 29.2 L (30.3-42.9) % MCV 114 H (79-97) fl MCH 38 H (28-32) pg RDW 15.9 H (13.2-15.2) % Seg Neuts % (Manual) 79.0 H (40.0-70.0) % Lymphocytes % (Manual) 13.0 L (13.4-35.0) % Seg Neutrophils # Man 10.3 H (1.8-7.7) K/mm3 PT 25.0 H (12.2-14.9) Sec. INR 2.32 H (0.87-1.13) APTT 39.0 H (24.2-36.6) Sec. Sodium 132 L (137-145) mmol/L Potassium 3.0 L (3.6-5.0) mmol/L Chloride 90.1 L (98-107) mmol/L Glucose 127 H (65-100) mg/dL Calcium 7.9 L (8.4-10.2) mg/dL Total Bilirubin 21.40 H (0.1-1.2) mg/dL Direct Bilirubin 16.2 H (0-0.2) mg/dL AST 297 H (5-40) units/L ALT 71 H (7-56) units/L Alkaline Phosphatase 307 H (35-129) units/L Ammonia (25-60) umol/L Total Protein 6.0 L (6.3-8.2) g/dL Albumin 3.3 L (3.9-5) g/dL Triglycerides (2-149) mg/dL Cholesterol (50-199) mg/dL HDL Cholesterol (40-59) mg/dL Urine WBC (Auto) (0.0-6.0) /HPF 09/29/19 09/29/19 09/29/19 Range/Units 00:48 00:48 00:52 WBC (4.5-11.0) K/mm3 RBC (3.65-5.03) M/mm3 Hgb (10.1-14.3) gm/dl Hct (30.3-42.9) % MCV (79-97) fl MCH (28-32) pg RDW (13.2-15.2) % Seg Neuts % (Manual) (40.0-70.0) % Lymphocytes % (Manual) (13.4-35.0) % Seg Neutrophils # Man (1.8-7.7) K/mm3 PT (12.2-14.9) Sec. INR (0.87-1.13) APTT (24.2-36.6) Sec. Sodium (137-145) mmol/L Potassium (3.6-5.0) mmol/L Chloride (98-107) mmol/L Glucose (65-100) mg/dL Calcium (8.4-10.2) mg/dL Total Bilirubin 22.50 H (0.1-1.2) mg/dL Direct Bilirubin 16.6 H (0-0.2) mg/dL AST 301 H (5-40) units/L ALT 71 H (7-56) units/L Alkaline Phosphatase 309 H (35-129) units/L Ammonia (25-60) umol/L Total Protein 6.1 L (6.3-8.2) g/dL Albumin 3.4 L (3.9-5) g/dL Triglycerides 411 H (2-149) mg/dL Cholesterol 310 H (50-199) mg/dL HDL Cholesterol 5 L (40-59) mg/dL Urine WBC (Auto) 33.0 H (0.0-6.0) /HPF 09/29/19 09/29/19 Range/Units 07:30 07:30 WBC (4.5-11.0) K/mm3 RBC (3.65-5.03) M/mm3 Hgb (10.1-14.3) gm/dl Hct (30.3-42.9) % MCV (79-97) fl MCH (28-32) pg RDW (13.2-15.2) % Seg Neuts % (Manual) (40.0-70.0) % Lymphocytes % (Manual) (13.4-35.0) % Seg Neutrophils # Man (1.8-7.7) K/mm3 PT (12.2-14.9) Sec. INR (0.87-1.13) APTT (24.2-36.6) Sec. Sodium (137-145) mmol/L Potassium (3.6-5.0) mmol/L Chloride (98-107) mmol/L Glucose (65-100) mg/dL Calcium (8.4-10.2) mg/dL Total Bilirubin 22.10 H (0.1-1.2) mg/dL Direct Bilirubin 16.4 H (0-0.2) mg/dL AST 305 H (5-40) units/L ALT 69 H (7-56) units/L Alkaline Phosphatase 299 H (35-129) units/L Ammonia 114.0 H (25-60) umol/L Total Protein 6.0 L (6.3-8.2) g/dL Albumin 3.3 L (3.9-5) g/dL Triglycerides (2-149) mg/dL Cholesterol (50-199) mg/dL HDL Cholesterol (40-59) mg/dL Urine WBC (Auto) (0.0-6.0) /HPF - Imaging and cardiology CT scan - abdomen: report reviewed
[2019-09-30] MEDS: SODIUM CHLORIDE 0.9% 1000 ML 1,000 ML IV SCH ×2 (04:42→21:35)
[2019-09-30 05:43] LABS: Hematocrit 26.2 % (30.3-42.9); Mean Corpuscular HGB Conc 34 % (30-34); Platelet Count 190 K/mm3 (140-440); Red Blood Count 2.27 M/mm3 (3.65-5.03); Red Cell Distribution Width 16.4 % (13.2-15.2)
[2019-09-30 05:45] LABS: INR 2.09 (0.87-1.13); Mean Corpuscular Volume 115 fl (79-97)
[2019-09-30 06:03] LABS: Alanine Aminotransferase 62 units/L (7-56); Albumin 3.1 g/dL (3.9-5); BUN/Creatinine Ratio 60; Blood Urea Nitrogen 12 mg/dL (7-17); Calcium 7.5 mg/dL (8.4-10.2); Hemolysis Index 0
[2019-09-30 06:18] LABS: Anisocytosis 1+; Basophils % (Manual) 0 % (0.0-1.8); Total Cells Counted 100
[2019-09-30 06:19] LABS: Macrocytosis 1+; Platelet Estimate Consistent w Auto
[2019-09-30] MEDS ORDERED: POTASSIUM CHLORIDE ER 20 MEQ TAB PO ONE (06:22)
[2019-09-30] MEDS: cefTRIAXone/NS 1 GM/50 ML 1 GM/50 ML BAG IV SCH ×2 (10:00→21:06)
[2019-09-30] MEDS: predniSONE 20 MG TAB PO SCH (11:53)
[2019-09-30] MEDS: FAMOTIDINE 20 MG/2 ML INJ IV SCH ×2 (11:53→21:35)
[2019-09-30] MEDS: LACTULOSE 20 GM/30 ML ORAL LIQD PO SCH (11:53)
[2019-09-30] MEDS: THIAMINE 100 MG TAB PO SCH (11:53)
[2019-09-30] MEDS: POTASSIUM CHLORIDE 10 MEQ 10 MEQ/100 ML BAG IV SCH ×4 (11:54→21:07)
--- NOTE | 2019-09-30 12:00 | Gastroenterology Progress Note ---
<EDD ANNE - Last Filed: 09/30/19 12:05> Assessment and Plan 1.elevated LFTs 2.jaundice 3.ETOH abuse -WBC 11.7-trending down -H/H 9.0/26.2 (macrocytic anemia)-no signs of active bleeding -plt WNL, INR 2.09-trending down s/p vit K -LFTs- T.cheryl 22.90, AST 236, ALT 62, alk phos 255 -ammonia 95-trending down -abd CT showed hepatic steatosis and moderate ascites -etiology-most likely 2/2 alcoholic hepatitis -DF >32- diagnostic/therapeutic paracentesis pending to r/o SBP once INR <2, then will initiate steroids -continue empiric antibiotics/lactulose -avoid hepatotoxic agents/limit sedatives -continue PPI, MVI, and supportive care -continue to trend labs -electrolyte management per primary team -alcohol cessation discussed/encouraged with patient- [facility] protocol -will follow Subjective Date of service: 09/30/19 Principal diagnosis: liver failure, ETOH, abd distention Interval history: Patient resting in bed this am w/o acute distress but noted to be somnolent. Has some continued mild abd discomfort. No N/V or signs of bleeding. Objective - Constitutional Vitals: Temp Pulse Resp BP Pulse Ox 99.9 F H 114 H 24 143/94 94 09/30/19 03:25 09/30/19 04:00 09/30/19 03:25 09/30/19 03:25 09/30/19 03:25 General appearance: no acute distress, other (somnolent) - EENT Eyes: scleral icterus - Respiratory Respiratory effort: normal Respiratory: bilateral: CTA (anterior) - Cardiovascular Rhythm: other (tachycardia) - Gastrointestinal General gastrointestinal: Present: soft, tender (slight TTP), distended (slightly), normal bowel sounds - Integumentary Integumentary: Present: jaundice - Neurologic Neurological: alert and oriented x3 - Labs CBC & Chem 7: 09/30/19 04:59 09/30/19 04:59 Labs: Laboratory Results - last 24 hr 09/29/19 09/30/19 09/30/19 09:53 04:59 04:59 WBC 11.7 H RBC 2.27 L Hgb 9.0 L Hct 26.2 L MCV 115 H MCH 39 H MCHC 34 RDW 16.4 H Plt Count 190 Add Manual Diff Complete Total Counted 100 Seg Neuts % (Manual) 87.0 H Band Neutrophils % 0 Lymphocytes % (Manual) 7.0 L Reactive Lymphs % (Man) 0 Monocytes % (Manual) 5.0 Eosinophils % (Manual) 1.0 Basophils % (Manual) 0 Metamyelocytes % 0 Myelocytes % 0 Promyelocytes % 0 Blast Cells % 0 Nucleated RBC % Not Reportable Seg Neutrophils # Man 10.2 H Band Neutrophils # 0.0 Lymphocytes # (Manual) 0.8 L Abs React Lymphs (Man) 0.0 Monocytes # (Manual) 0.6 Eosinophils # (Manual) 0.1 Basophils # (Manual) 0.0 Metamyelocytes # 0.0 Myelocytes # 0.0 Promyelocytes # 0.0 Blast Cells # 0.0 WBC Morphology Not Reportable Hypersegmented Neuts Not Reportable Hyposegmented Neuts Not Reportable Hypogranular Neuts Not Reportable Smudge Cells Not Reportable Toxic Granulation Not Reportable Toxic Vacuolation Not Reportable Dohle Bodies Not Reportable Pelger-Huet Anomaly Not Reportable Rafi Rods Not Reportable Platelet Estimate Consistent w auto Clumped Platelets Not Reportable Plt Clumps, EDTA Not Reportable Large Platelets Not Reportable Giant Platelets Not Reportable Platelet Satelliting Not Reportable Plt Morphology Comment Not Reportable RBC Morphology Not Reportable Dimorphic RBCs Not Reportable Polychromasia Not Reportable Hypochromasia Not Reportable Poikilocytosis Not Reportable Anisocytosis 1+ Microcytosis Not Reportable Macrocytosis 1+ Spherocytes Not Reportable Pappenheimer Bodies Not Reportable Sickle Cells Not Reportable Target Cells Not Reportable Tear Drop Cells Not Reportable Ovalocytes Not Reportable Helmet Cells Not Reportable [place] Bodies Not Reportable [place] Rings Not Reportable [place] Cells Not Reportable Bite Cells Not Reportable Crenated Cell Not Reportable Elliptocytes Not Reportable Acanthocytes (Spur) Not Reportable Rouleaux Not Reportable Hemoglobin C Crystals Not Reportable Schistocytes Not Reportable Malaria parasites Not Reportable Ming Bodies Not Reportable Hem Pathologist Commnt No PT 23.1 H INR 2.09 H Sodium Potassium Chloride Carbon Dioxide Anion Gap BUN Creatinine Estimated GFR BUN/Creatinine Ratio Glucose Calcium Total Bilirubin AST ALT Alkaline Phosphatase Ammonia Total Protein Albumin Albumin/Globulin Ratio Hepatitis A IgM Ab Non-reactive Hep Bs Antigen Non-reactive Hep B Core IgM Ab Non-reactive Hepatitis C Antibody Non-reactive 09/30/19 09/30/19 04:59 04:59 WBC RBC Hgb Hct MCV MCH MCHC RDW Plt Count Add Manual Diff Total Counted Seg Neuts % (Manual) Band Neutrophils % Lymphocytes % (Manual) Reactive Lymphs % (Man) Monocytes % (Manual) Eosinophils % (Manual) Basophils % (Manual) Metamyelocytes % Myelocytes % Promyelocytes % Blast Cells % Nucleated RBC % Seg Neutrophils # Man Band Neutrophils # Lymphocytes # (Manual) Abs React Lymphs (Man) Monocytes # (Manual) Eosinophils # (Manual) Basophils # (Manual) Metamyelocytes # Myelocytes # Promyelocytes # Blast Cells # WBC Morphology Hypersegmented Neuts Hyposegmented Neuts Hypogranular Neuts Smudge Cells Toxic Granulation Toxic Vacuolation Dohle Bodies Pelger-Huet Anomaly Rafi Rods Platelet Estimate Clumped Platelets Plt Clumps, EDTA Large Platelets Giant Platelets Platelet Satelliting Plt Morphology Comment RBC Morphology Dimorphic RBCs Polychromasia Hypochromasia Poikilocytosis Anisocytosis Microcytosis Macrocytosis Spherocytes Pappenheimer Bodies Sickle Cells Target Cells Tear Drop Cells Ovalocytes Helmet Cells [place] Bodies [place] Rings Mily Cells Bite Cells Crenated Cell Elliptocytes Acanthocytes (Spur) Rouleaux Hemoglobin C Crystals Schistocytes Malaria parasites Ming Bodies Hem Pathologist Commnt PT INR Sodium 139 D Potassium 2.3 L* D Chloride 97.1 L Carbon Dioxide 22 Anion Gap 22 BUN 12 Creatinine 0.2 L D Estimated GFR > 60 BUN/Creatinine Ratio 60 Glucose 108 H Calcium 7.5 L Total Bilirubin 22.90 H AST 236 H ALT 62 H Alkaline Phosphatase 255 H Ammonia 95.0 H Total Protein 5.6 L Albumin 3.1 L Albumin/Globulin Ratio 1.2 Hepatitis A IgM Ab Hep Bs Antigen Hep B Core IgM Ab Hepatitis C Antibody <LUPE PERRY R - Last Filed: 09/30/19 15:10> Assessment and Plan Pt seen and examined. Stable. Empirically initiate steroids for alcoholic hepatitis. Objective - Constitutional Vitals: Temp Pulse Resp BP Pulse Ox 98.5 F 109 H 18 141/85 95 09/30/19 12:52 09/30/19 12:52 10/31/19 12:52 09/30/19 12:52 09/30/19 12:52 - Labs CBC & Chem 7: 09/30/19 04:59 09/30/19 04:59 Labs: Laboratory Results - last 24 hr 09/30/19 09/30/19 09/30/19 04:59 04:59 04:59 WBC 11.7 H RBC 2.27 L Hgb 9.0 L Hct 26.2 L MCV 115 H MCH 39 H MCHC 34 RDW 16.4 H Plt Count 190 Add Manual Diff Complete Total Counted 100 Seg Neuts % (Manual) 87.0 H Band Neutrophils % 0 Lymphocytes % (Manual) 7.0 L Reactive Lymphs % (Man) 0 Monocytes % (Manual) 5.0 Eosinophils % (Manual) 1.0 Basophils % (Manual) 0 Metamyelocytes % 0 Myelocytes % 0 Promyelocytes % 0 Blast Cells % 0 Nucleated RBC % Not Reportable Seg Neutrophils # Man 10.2 H Band Neutrophils # 0.0 Lymphocytes # (Manual) 0.8 L Abs React Lymphs (Man) 0.0 Monocytes # (Manual) 0.6 Eosinophils # (Manual) 0.1 Basophils # (Manual) 0.0 Metamyelocytes # 0.0 Myelocytes # 0.0 Promyelocytes # 0.0 Blast Cells # 0.0 WBC Morphology Not Reportable Hypersegmented Neuts Not Reportable Hyposegmented Neuts Not Reportable Hypogranular Neuts Not Reportable Smudge Cells Not Reportable Toxic Granulation Not Reportable Toxic Vacuolation Not Reportable Dohle Bodies Not Reportable Pelger-Huet Anomaly Not Reportable Rafi Rods Not Reportable Platelet Estimate Consistent w auto Clumped Platelets Not Reportable Plt Clumps, EDTA Not Reportable Large Platelets Not Reportable Giant Platelets Not Reportable Platelet Satelliting Not Reportable Plt Morphology Comment Not Reportable RBC Morphology Not Reportable Dimorphic RBCs Not Reportable Polychromasia Not Reportable Hypochromasia Not Reportable Poikilocytosis Not Reportable Anisocytosis 1+ Microcytosis Not Reportable Macrocytosis 1+ Spherocytes Not Reportable Pappenheimer Bodies Not Reportable Sickle Cells Not Reportable Target Cells Not Reportable Tear Drop Cells Not Reportable Ovalocytes Not Reportable Helmet Cells Not Reportable [place] Bodies Not Reportable [place] Rings Not Reportable [place] Cells Not Reportable Bite Cells Not Reportable Crenated Cell Not Reportable Elliptocytes Not Reportable Acanthocytes (Spur) Not Reportable Rouleaux Not Reportable Hemoglobin C Crystals Not Reportable Schistocytes Not Reportable Malaria parasites Not Reportable Ming Bodies Not Reportable Hem Pathologist Commnt No PT 23.1 H INR 2.09 H Sodium 139 D Potassium 2.3 L* D Chloride 97.1 L Carbon Dioxide 22 Anion Gap 22 BUN 12 Creatinine 0.2 L D Estimated GFR > 60 BUN/Creatinine Ratio 60 Glucose 108 H Calcium 7.5 L Total Bilirubin 22.90 H AST 236 H ALT 62 H Alkaline Phosphatase 255 H Ammonia Total Protein 5.6 L Albumin 3.1 L Albumin/Globulin Ratio 1.2 09/30/19 04:59 WBC RBC Hgb Hct MCV MCH MCHC RDW Plt Count Add Manual Diff Total Counted Seg Neuts % (Manual) Band Neutrophils % Lymphocytes % (Manual) Reactive Lymphs % (Man) Monocytes % (Manual) Eosinophils % (Manual) Basophils % (Manual) Metamyelocytes % Myelocytes % Promyelocytes % Blast Cells % Nucleated RBC % Seg Neutrophils # Man Band Neutrophils # Lymphocytes # (Manual) Abs React Lymphs (Man) Monocytes # (Manual) Eosinophils # (Manual) Basophils # (Manual) Metamyelocytes # Myelocytes # Promyelocytes # Blast Cells # WBC Morphology Hypersegmented Neuts Hyposegmented Neuts Hypogranular Neuts Smudge Cells Toxic Granulation Toxic Vacuolation Dohle Bodies Pelger-Huet Anomaly Rafi Rods Platelet Estimate Clumped Platelets Plt Clumps, EDTA Large Platelets Giant Platelets Platelet Satelliting Plt Morphology Comment RBC Morphology Dimorphic RBCs Polychromasia Hypochromasia Poikilocytosis Anisocytosis Microcytosis Macrocytosis Spherocytes Pappenheimer Bodies Sickle Cells Target Cells Tear Drop Cells Ovalocytes Helmet Cells [place] Bodies [place] Rings Mily Cells Bite Cells Crenated Cell Elliptocytes Acanthocytes (Spur) Rouleaux Hemoglobin C Crystals Schistocytes Malaria parasites Ming Bodies Hem Pathologist Commnt PT INR Sodium Potassium Chloride Carbon Dioxide Anion Gap BUN Creatinine Estimated GFR BUN/Creatinine Ratio Glucose Calcium Total Bilirubin AST ALT Alkaline Phosphatase Ammonia 95.0 H Total Protein Albumin Albumin/Globulin Ratio
[2019-09-30] MEDS ORDERED: PHYTONADIONE(ADULT ONLY) 10 MG in SODIUM CHLORIDE 0.9% 50 ML IV ONE (15:00)
--- NOTE | 2019-09-30 15:16 | Progress Note ---
Assessment and Plan /Acute alcoholic liver failure - Continue to monitor LFT, follow GI recommendation - Continue lactulose, steroid /Hyperbilirubenemia, due to acute liver failure, supportive care /Alcohol used disorder NS for hydration Banana bag or Multi vit, thiamina, CIWA protocol with ativan /Leucocytosis with SIRS from [place] - We'll monitor clinically, supportive care Anemia of chronic disease, monitor H&H, transfuse as needed / Hyponatremia and severe Hypokalemia - Continue IV fluid hydration, replete electrolytes, monitor BMP / Hypertension - monitor BP / Hyperlipidemia - we will hold his statin in the light of acute hepatic failure / UTI - ruled out with a negative UA and negative urine culture DVT prophylaxis, SCD If patient does not improve clinically, made to transfer to [place] for higher level of care. Subjective Date of service: 09/30/19 Principal diagnosis: liver failure, ETOH, abd distention Interval history: Patient seen and examined. Medical records and medication list reviewed. No acute event overnight noted by the RN. Patient denies any chest pain or difficulty breathing. Admits to drinking alcohol daily basis mainly vodka, last intake was on 09/25 Discussed plan of care at bedside with patient. Continue to have severe jaundice, elevated bilirubin and severe hypokalemia Objective - Exam Narrative Exam: General appearance: Present: mild distress - EENT Eyes: PERRL, EOM intact, scleral icterus ENT: hearing intact, clear oral mucosa Ears: bilateral: normal - Neck Neck: supple, normal ROM - Respiratory Respiratory effort: normal Respiratory: bilateral: CTA - Cardiovascular Rhythm: regular Heart Sounds: Present: S1 & S2. Absent: gallop, rub Extremities: pulses intact, No edema, normal color, Full ROM - Gastrointestinal General gastrointestinal: Present: soft, non-tender, non-distended, normal bowel sounds - Integumentary Integumentary: clear, warm, dry, jaundice - Musculoskeletal Musculoskeletal: generalized weakness - Neurologic Neurologic: moves all extremities - Psychiatric Psychiatric: memory intact, appropriate mood/affect, intact judgment & insight - Constitutional Vitals: Vital Signs - 12hr 09/30/19 09/30/19 09/30/19 03:25 04:00 09:06 Temperature 99.9 F H 98.0 F Pulse Rate 112 H 114 H 100 H Respiratory 24 18 Rate Blood Pressure 143/94 109/65 O2 Sat by Pulse 94 94 Oximetry 09/30/19 12:52 Temperature 98.5 F Pulse Rate 109 H Respiratory 18 Rate Blood Pressure 141/85 O2 Sat by Pulse 95 Oximetry - Labs CBC & Chem 7: 10/01/19 05:09 10/01/19 09:13 Labs: Abnormal lab results 09/30/19 09/30/19 09/30/19 Range/Units 04:59 04:59 04:59 WBC 11.7 H (4.5-11.0) K/mm3 RBC 2.27 L (3.65-5.03) M/mm3 Hgb 9.0 L (10.1-14.3) gm/dl Hct 26.2 L (30.3-42.9) % MCV 115 H (79-97) fl MCH 39 H (28-32) pg RDW 16.4 H (13.2-15.2) % Seg Neuts % (Manual) 87.0 H (40.0-70.0) % Lymphocytes % (Manual) 7.0 L (13.4-35.0) % Seg Neutrophils # Man 10.2 H (1.8-7.7) K/mm3 Lymphocytes # (Manual) 0.8 L (1.2-5.4) K/mm3 PT 23.1 H (12.2-14.9) Sec. INR 2.09 H (0.87-1.13) Potassium 2.3 L* D (3.6-5.0) mmol/L Chloride 97.1 L (98-107) mmol/L Creatinine 0.2 L D (0.7-1.2) mg/dL Glucose 108 H (65-100) mg/dL Calcium 7.5 L (8.4-10.2) mg/dL Total Bilirubin 22.90 H (0.1-1.2) mg/dL AST 236 H (5-40) units/L ALT 62 H (7-56) units/L Alkaline Phosphatase 255 H (35-129) units/L Ammonia (25-60) umol/L Total Protein 5.6 L (6.3-8.2) g/dL Albumin 3.1 L (3.9-5) g/dL 09/30/19 Range/Units 04:59 WBC (4.5-11.0) K/mm3 RBC (3.65-5.03) M/mm3 Hgb (10.1-14.3) gm/dl Hct (30.3-42.9) % MCV (79-97) fl MCH (28-32) pg RDW (13.2-15.2) % Seg Neuts % (Manual) (40.0-70.0) % Lymphocytes % (Manual) (13.4-35.0) % Seg Neutrophils # Man (1.8-7.7) K/mm3 Lymphocytes # (Manual) (1.2-5.4) K/mm3 PT (12.2-14.9) Sec. INR (0.87-1.13) Potassium (3.6-5.0) mmol/L Chloride (98-107) mmol/L Creatinine (0.7-1.2) mg/dL Glucose (65-100) mg/dL Calcium (8.4-10.2) mg/dL Total Bilirubin (0.1-1.2) mg/dL AST (5-40) units/L ALT (7-56) units/L Alkaline Phosphatase (35-129) units/L Ammonia 95.0 H (25-60) umol/L Total Protein (6.3-8.2) g/dL Albumin (3.9-5) g/dL
[2019-10-01 05:40] LABS: Hematocrit 27.3 % (30.3-42.9); Hemoglobin 9.2 gm/dl (10.1-14.3); Mean Corpuscular HGB Conc 34 % (30-34); Platelet Count 197 K/mm3 (140-440); Red Blood Count 2.32 M/mm3 (3.65-5.03); Red Cell Distribution Width 18.2 % (13.2-15.2)
[2019-10-01 05:52] LABS: INR 3.55 (0.87-1.13)
[2019-10-01 05:58] LABS: Mean Corpuscular Volume 118 fl (79-97)
[2019-10-01 06:18] LABS: Albumin 2.9 g/dL (3.9-5)
[2019-10-01 06:35] LABS: Bilirubin,Direct 17.3 mg/dL (0-0.2)
[2019-10-01 07:17] LABS: Basophils % (Manual) 0 % (0.0-1.8); Eosinophils % (Manual) 0 % (0.0-4.3); Total Cells Counted 100
[2019-10-01 07:19] LABS: Anisocytosis 1+; Macrocytosis 1+
[2019-10-01 07:20] LABS: Hypochromasia Few; Platelet Estimate Consistent w Auto; Target Cells Rare
[2019-10-01] MEDS: predniSONE 20 MG TAB PO SCH (09:59)
[2019-10-01] MEDS: THIAMINE 100 MG TAB PO SCH (09:59)
[2019-10-01] MEDS: LACTULOSE 20 GM/30 ML ORAL LIQD PO SCH (09:59)
[2019-10-01] MEDS: FAMOTIDINE 20 MG/2 ML INJ IV SCH (09:59)
[2019-10-01] MEDS ORDERED: POTASSIUM CHLORIDE ER 10 MEQ TAB PO SCH (10:00)
--- NOTE | 2019-10-01 10:01 | Gastroenterology Progress Note ---
<EDD ANNE - Last Filed: 10/01/19 09:57> Assessment and Plan 1.elevated LFTs 2.jaundice 3.ETOH abuse -WBC 11.7-trending down -H/H 9.2/27.32- stable (macrocytic anemia)-no signs of active bleeding -plt WNL, INR 3.55-trended up despite vit k challenge yesterday -LFTs trending up- T.cheryl 24.30, AST 200, ALT 58, alk phos 229 -ammonia 116-trending down -abd CT showed hepatic steatosis and moderate ascites -etiology-most likely 2/2 alcoholic hepatitis -DF >32- continue steroids (prednisolone 40mg daily) -diagnostic/therapeutic paracentesis pending once INR <2 -continue empiric antibiotics/lactulose (increase dose given elevation in ammonia level) -avoid hepatotoxic agents/limit sedatives -continue PPI, MVI, and supportive care -continue to trend labs -electrolyte management per primary team -alcohol cessation- continue CIWA protocol -given worsening of labs and mental status which are concerning for liver failure, recommend patient be transferred to tertiary care center for further management (discussed with Dr. Quiles- he will being contacting [place]) -continue to monitor patient -low threshold to transfer to ICU for closer monitoring Subjective Date of service: 10/01/19 Principal diagnosis: liver failure, ETOH, abd distention Interval history: Patient remains oriented, but noted to be more somnolent this am. Has continued c/o mild diffuse abd discomfort. No N/V or signs of bleeding. Objective - Constitutional Vitals: Temp Pulse Resp BP Pulse Ox 99.1 F 106 H 18 131/85 95 10/01/19 08:23 10/01/19 08:23 10/01/19 08:23 10/01/19 08:23 10/01/19 08:23 General appearance: no acute distress, other (somnolent) - EENT Eyes: scleral icterus - Respiratory Respiratory effort: normal - Cardiovascular Rhythm: other (tachycardia) - Gastrointestinal General gastrointestinal: Present: soft, tender (slight diffuse TTP), distended (slightly), normal bowel sounds - Integumentary Integumentary: Present: jaundice - Neurologic Neurological: alert and oriented x3 - Labs CBC & Chem 7: 10/01/19 05:09 09/30/19 04:59 Labs: Laboratory Results - last 24 hr 10/01/19 10/01/19 10/01/19 05:09 05:09 05:09 WBC 11.7 H RBC 2.32 L Hgb 9.2 L Hct 27.3 L MCV 118 H MCH 40 H MCHC 34 RDW 18.2 H Plt Count 197 Add Manual Diff Complete Total Counted 100 Seg Neuts % (Manual) 92.0 H Band Neutrophils % 0 Lymphocytes % (Manual) 4.0 L Reactive Lymphs % (Man) 0 Monocytes % (Manual) 4.0 Eosinophils % (Manual) 0 Basophils % (Manual) 0 Metamyelocytes % 0 Myelocytes % 0 Promyelocytes % 0 Blast Cells % 0 Nucleated RBC % Not Reportable Seg Neutrophils # Man 10.8 H Band Neutrophils # 0.0 Lymphocytes # (Manual) 0.5 L Abs React Lymphs (Man) 0.0 Monocytes # (Manual) 0.5 Eosinophils # (Manual) 0.0 Basophils # (Manual) 0.0 Metamyelocytes # 0.0 Myelocytes # 0.0 Promyelocytes # 0.0 Blast Cells # 0.0 WBC Morphology Not Reportable Hypersegmented Neuts Not Reportable Hyposegmented Neuts Not Reportable Hypogranular Neuts Not Reportable Smudge Cells Not Reportable Toxic Granulation Not Reportable Toxic Vacuolation Not Reportable Dohle Bodies Not Reportable Pelger-Huet Anomaly Not Reportable Rafi Rods Not Reportable Platelet Estimate Consistent w auto Clumped Platelets Not Reportable Plt Clumps, EDTA Not Reportable Large Platelets Not Reportable Giant Platelets Not Reportable Platelet Satelliting Not Reportable Plt Morphology Comment Not Reportable RBC Morphology Not Reportable Dimorphic RBCs Not Reportable Polychromasia Not Reportable Hypochromasia Few Poikilocytosis Not Reportable Anisocytosis 1+ Microcytosis Not Reportable Macrocytosis 1+ Spherocytes Not Reportable Pappenheimer Bodies Not Reportable Sickle Cells Not Reportable Target Cells Rare Tear Drop Cells Not Reportable Ovalocytes Not Reportable Helmet Cells Not Reportable [place] Bodies Not Reportable [place] Rings Not Reportable [place] Cells Not Reportable Bite Cells Not Reportable Crenated Cell Not Reportable Elliptocytes Not Reportable Acanthocytes (Spur) Not Reportable Rouleaux Not Reportable Hemoglobin C Crystals Not Reportable Schistocytes Not Reportable Malaria parasites Not Reportable Ming Bodies Not Reportable Hem Pathologist Commnt No PT INR Total Bilirubin 24.30 H Direct Bilirubin 17.3 H Indirect Bilirubin 7.0 AST 200 H ALT 58 H Alkaline Phosphatase 229 H Ammonia 116.0 H Total Protein 5.6 L Albumin 2.9 L Albumin/Globulin Ratio 1.1 10/01/19 05:09 WBC RBC Hgb Hct MCV MCH MCHC RDW Plt Count Add Manual Diff Total Counted Seg Neuts % (Manual) Band Neutrophils % Lymphocytes % (Manual) Reactive Lymphs % (Man) Monocytes % (Manual) Eosinophils % (Manual) Basophils % (Manual) Metamyelocytes % Myelocytes % Promyelocytes % Blast Cells % Nucleated RBC % Seg Neutrophils # Man Band Neutrophils # Lymphocytes # (Manual) Abs React Lymphs (Man) Monocytes # (Manual) Eosinophils # (Manual) Basophils # (Manual) Metamyelocytes # Myelocytes # Promyelocytes # Blast Cells # WBC Morphology Hypersegmented Neuts Hyposegmented Neuts Hypogranular Neuts Smudge Cells Toxic Granulation Toxic Vacuolation Dohle Bodies Pelger-Huet Anomaly Rafi Rods Platelet Estimate Clumped Platelets Plt Clumps, EDTA Large Platelets Giant Platelets Platelet Satelliting Plt Morphology Comment RBC Morphology Dimorphic RBCs Polychromasia Hypochromasia Poikilocytosis Anisocytosis Microcytosis Macrocytosis Spherocytes Pappenheimer Bodies Sickle Cells Target Cells Tear Drop Cells Ovalocytes Helmet Cells [place] Bodies [place] Rings [place] Cells Bite Cells Crenated Cell Elliptocytes Acanthocytes (Spur) Rouleaux Hemoglobin C Crystals Schistocytes Malaria parasites Ming Bodies Hem Pathologist Commnt PT 34.7 H INR 3.55 H Total Bilirubin Direct Bilirubin Indirect Bilirubin AST ALT Alkaline Phosphatase Ammonia Total Protein Albumin Albumin/Globulin Ratio <LUPE QUILES R - Last Filed: 10/01/19 15:01> Assessment and Plan Pt awake, alert. Jaundiced. Increasing T bili and INR concerning. Discussed with Dr. Rutherford at [facility]. - will transfer for ongoing management. Pt aware and agrees. Objective - Constitutional Vitals: Temp Pulse Resp BP Pulse Ox 99.1 F 111 H 18 127/83 83 L 10/01/19 08:23 10/01/19 14:51 10/01/19 14:51 10/01/19 14:51 10/01/19 14:51 - Labs CBC & Chem 7: 10/01/19 05:09 10/01/19 09:13 Labs: Laboratory Results - last 24 hr 10/01/19 10/01/19 10/01/19 05:09 05:09 05:09 WBC 11.7 H RBC 2.32 L Hgb 9.2 L Hct 27.3 L MCV 118 H MCH 40 H MCHC 34 RDW 18.2 H Plt Count 197 Add Manual Diff Complete Total Counted 100 Seg Neuts % (Manual) 92.0 H Band Neutrophils % 0 Lymphocytes % (Manual) 4.0 L Reactive Lymphs % (Man) 0 Monocytes % (Manual) 4.0 Eosinophils % (Manual) 0 Basophils % (Manual) 0 Metamyelocytes % 0 Myelocytes % 0 Promyelocytes % 0 Blast Cells % 0 Nucleated RBC % Not Reportable Seg Neutrophils # Man 10.8 H Band Neutrophils # 0.0 Lymphocytes # (Manual) 0.5 L Abs React Lymphs (Man) 0.0 Monocytes # (Manual) 0.5 Eosinophils # (Manual) 0.0 Basophils # (Manual) 0.0 Metamyelocytes # 0.0 Myelocytes # 0.0 Promyelocytes # 0.0 Blast Cells # 0.0 WBC Morphology Not Reportable Hypersegmented Neuts Not Reportable Hyposegmented Neuts Not Reportable Hypogranular Neuts Not Reportable Smudge Cells Not Reportable Toxic Granulation Not Reportable Toxic Vacuolation Not Reportable Dohle Bodies Not Reportable Pelger-Huet Anomaly Not Reportable Rafi Rods Not Reportable Platelet Estimate Consistent w auto Clumped Platelets Not Reportable Plt Clumps, EDTA Not Reportable Large Platelets Not Reportable Giant Platelets Not Reportable Platelet Satelliting Not Reportable Plt Morphology Comment Not Reportable RBC Morphology Not Reportable Dimorphic RBCs Not Reportable Polychromasia Not Reportable Hypochromasia Few Poikilocytosis Not Reportable Anisocytosis 1+ Microcytosis Not Reportable Macrocytosis 1+ Spherocytes Not Reportable Pappenheimer Bodies Not Reportable Sickle Cells Not Reportable Target Cells Rare Tear Drop Cells Not Reportable Ovalocytes Not Reportable Helmet Cells Not Reportable [place] Bodies Not Reportable [place] Rings Not Reportable [place] Cells Not Reportable Bite Cells Not Reportable Crenated Cell Not Reportable Elliptocytes Not Reportable Acanthocytes (Spur) Not Reportable Rouleaux Not Reportable Hemoglobin C Crystals Not Reportable Schistocytes Not Reportable Malaria parasites Not Reportable Ming Bodies Not Reportable Hem Pathologist Commnt No PT INR Sodium Potassium Chloride Carbon Dioxide Anion Gap BUN Creatinine Estimated GFR BUN/Creatinine Ratio Glucose Calcium Total Bilirubin 24.30 H Direct Bilirubin 17.3 H Indirect Bilirubin 7.0 AST 200 H ALT 58 H Alkaline Phosphatase 229 H Ammonia 116.0 H Total Protein 5.6 L Albumin 2.9 L Albumin/Globulin Ratio 1.1 10/01/19 10/01/19 05:09 09:13 WBC RBC Hgb Hct MCV MCH MCHC RDW Plt Count Add Manual Diff Total Counted Seg Neuts % (Manual) Band Neutrophils % Lymphocytes % (Manual) Reactive Lymphs % (Man) Monocytes % (Manual) Eosinophils % (Manual) Basophils % (Manual) Metamyelocytes % Myelocytes % Promyelocytes % Blast Cells % Nucleated RBC % Seg Neutrophils # Man Band Neutrophils # Lymphocytes # (Manual) Abs React Lymphs (Man) Monocytes # (Manual) Eosinophils # (Manual) Basophils # (Manual) Metamyelocytes # Myelocytes # Promyelocytes # Blast Cells # WBC Morphology Hypersegmented Neuts Hyposegmented Neuts Hypogranular Neuts Smudge Cells Toxic Granulation Toxic Vacuolation Dohle Bodies Pelger-Huet Anomaly Rafi Rods Platelet Estimate Clumped Platelets Plt Clumps, EDTA Large Platelets Giant Platelets Platelet Satelliting Plt Morphology Comment RBC Morphology Dimorphic RBCs Polychromasia Hypochromasia Poikilocytosis Anisocytosis Microcytosis Macrocytosis Spherocytes Pappenheimer Bodies Sickle Cells Target Cells Tear Drop Cells Ovalocytes Helmet Cells [place] Bodies [place] Rings Mily Cells Bite Cells Crenated Cell Elliptocytes Acanthocytes (Spur) Rouleaux Hemoglobin C Crystals Schistocytes Malaria parasites Ming Bodies Hem Pathologist Commnt PT 34.7 H INR 3.55 H Sodium 139 Potassium 2.8 L* D Chloride 102.3 Carbon Dioxide 22 Anion Gap 18 BUN 10 Creatinine < 0.2 L Estimated GFR > 60 BUN/Creatinine Ratio 50 Glucose 98 Calcium 7.0 L Total Bilirubin Direct Bilirubin Indirect Bilirubin AST ALT Alkaline Phosphatase Ammonia Total Protein Albumin Albumin/Globulin Ratio
[2019-10-01 10:14] LABS: BUN/Creatinine Ratio 50; Blood Urea Nitrogen 10 mg/dL (7-17); Hemolysis Index 0
[2019-10-01] MEDS: cefTRIAXone/NS 1 GM/50 ML 1 GM/50 ML BAG IV SCH (10:56)
[2019-10-01] MEDS ORDERED: POTASSIUM CHLORIDE 30 MEQ in SODIUM CHLORIDE 0.9% 1000 ML 1,000 ML IV SCH (12:15)
[2019-10-01 14:54] VITALS: BP 127/83
--- NOTE | 2019-10-01 16:26 | Discharge Summary ---
Providers - Providers Date of Admission: 09/29/19 00:32 Date of discharge: 10/01/19 Attending physician: CHUCKIE CUADRA 09/29/19 07:14 Consult to Physician [CONS] Routine Comment: Consulting Provider: BRITNEY TAM Physician Instructions: Reason For Exam: abdomianl distention, ETOh, liver failure Hospitalization Condition: Fair Hospital course: Discharge diagnosis: /Acute alcoholic liver failure - Continue to monitor LFT, follow GI recommendation - Continue lactulose, steroid /Hyperbilirubenemia, due to acute liver failure, supportive care /Alcohol used disorder NS for hydration Banana bag or Multi vit, thiamina, CIWA protocol with ativan /Leucocytosis with SIRS from JAIL - We'll monitor clinically, supportive care Anemia of chronic disease, monitor H&H, transfuse as needed / Hyponatremia and severe Hypokalemia - Continue IV fluid hydration, replete electrolytes, monitor BMP / Hypertension - monitor BP / Hyperlipidemia - we will hold his statin in the light of acute hepatic failure / UTI - ruled out with a negative UA and negative urine culture DVT prophylaxis, SCD Disposition: [id number]/[id number] ANOTHER TYPE HLTHCARE Time spent for discharge: 34 minutes Core Measure Documentation - Palliative Care Palliative Care/ Comfort Measures: Not Applicable - Core Measures Any of the following diagnoses?: none Exam - Physical Exam Narrative exam: General appearance: Present: mild distress - EENT Eyes: PERRL, EOM intact, scleral icterus ENT: hearing intact, clear oral mucosa Ears: bilateral: normal - Neck Neck: supple, normal ROM - Respiratory Respiratory effort: normal Respiratory: bilateral: CTA - Cardiovascular Rhythm: regular Heart Sounds: Present: S1 & S2. Absent: gallop, rub Extremities: pulses intact, No edema, normal color, Full ROM - Gastrointestinal General gastrointestinal: Present: soft, non-tender, non-distended, normal bowel sounds - Integumentary Integumentary: clear, warm, dry, jaundice - Musculoskeletal Musculoskeletal: generalized weakness - Neurologic Neurologic: moves all extremities - Psychiatric Psychiatric: memory intact, appropriate mood/affect, intact judgment & insight - Constitutional Vitals: Temp Pulse Resp BP Pulse Ox 99.1 F 111 H 18 127/83 83 L 10/01/19 08:23 10/01/19 14:51 10/01/19 14:51 10/01/19 14:51 10/01/19 14:51 Plan Activity: fall precautions Diet: low fat Follow up with: PRIMARY CARE, [Referring] - 3-5 Days
[2019-10-01] MEDS ORDERED: LACTULOSE 20 GM/30 ML ORAL LIQD PO SCH (22:00)
== END 2019-10-01 15:00 | disposition short-term general hospital (02) | DRG 433 ==
LOC: ED 20:27 → 4A 09-29 00:32
PROVIDERS: ADMIT Internal Medicine; ATTEND Internal Medicine
DX: K70.40 Alcoholic hepatic failure without coma (principal); E87.1 Hypo-osmolality and hyponatremia; R65.10 Systemic inflammatory response syndrome (SIRS) of non-infectious origin without acute organ dysfunction; F10.10 Alcohol abuse, uncomplicated; I10 Essential (primary) hypertension; D63.8 Anemia in other chronic diseases classified elsewhere; E87.6 Hypokalemia; E78.5 Hyperlipidemia, unspecified; F17.200 Nicotine dependence, unspecified, uncomplicated; D72.829 Elevated white blood cell count, unspecified; E86.0 Dehydration; Z71.41 Alcohol abuse counseling and surveillance of alcoholic
CPT/HCPCS: 36415; 74176; 80048; 80053; 80061; 80074; 80076; 81001; 82140; 82247; 82248; 83735; 85007; 85025; 85610; 85730; 87086; 87116; 90686; 94640; 94760; G0378; J0696; J2060; J3411; J3430; J3480; J7030; J7510; J7512